=== PATIENT | female | born 1975 | race Caucasian/White ===

== ENCOUNTER 2024-04-02 11:58 | Observation (INO) | payer BC, OTHER ==
--- OUTSIDE RECORDS SUMMARY | 2024-04-02 12:00 | XMS REPORT | Clinical Summary ---
Author Name Unknown Organization [facility] Address [address] [place] [address] Care Team Providers Care Regional Forester Name Role Phone Unavailable Primary Care Provider Unavailabl e Social History Tobacco Use Types Packs/Day Years Used Date Smoking Tobacco: Never Assessed Sex and Gender Information Value Date Recorded Sex Assigned at Not on file Gender Identity Not on file Sexual Orientation Not on file Plan of Treatment Not on file
[2024-04-02 12:31] LABS: Absolute Basophils 0.1 K/uL (0-0.5); Absolute Eosinophils 0.2 K/uL (0-0.5); Absolute Lymphocytes (CBC) 2.1 K/uL (0.7-4.9); Absolute Monocytes 0.5 K/uL (0.1-1.3); Absolute Neutrophil 5.2 K/uL (1.8-8.0); Basophils % 1.2 % (0-1.3); Eosinophils % 1.8 % (0-4.4); Hematocrit 36.4 % (36.0-45.0); Hemoglobin 12.3 g/dL (12.0-15.0); Lymphocytes % 26.3 % (15.3-44.8); MCH 27.2 pg (27.0-35.0); MCHC 33.6 g/dL (32.0-36.0); MPV 7.8 fL (7.6-11.3); Monocytes % 6.7 % (3.3-12.3); Platelets 349 thou/uL (152-406); Red Cell Distribution Width 14.2 % (12.1-15.2)
[2024-04-02 12:46] LABS: D-Dimer < 0.215 FEUug/mL (0-0.50); PT Prothrombin Time 12.2 SECONDS (9.4-12.5); Protime INR 1.09
[2024-04-02 12:52] LABS: ALT/SGPT 23 U/L (13-56); AST/SGOT 15 U/L (15-37); Albumin 3.3 g/dL (3.4-5.0); Alkaline Phosphatase 54 U/L (45-117); Anion Gap 8.6 mEq/L (5.0-15.0); BUN Blood Urea Nitrogen 11 mg/dL (7-18); Bicarbonate 25 mEq/L (21-32); Bilirubin Direct < 0.2 mg/dL (0-0.2); Bilirubin Indirect, Calculated 0.1 mg/dL (0.2-0.8); Bilirubin Total 0.3 mg/dL (0.2-1.0); Globulin 3.4 g/dL (2.3-3.5); Glomerular Filtration Rate 88 ml/min (=/>90); Glucose Level 105 mg/dL (74-106); Lipase 21 U/L (13-75); Magnesium 2.1 mg/dL (1.6-2.4); NT PRO-BNP 51 pg/mL (<125); Potassium 3.6 mEq/L (3.5-5.1); Protein, Total 6.7 g/dL (6.4-8.2); Sodium Level 138 mEq/L (136-145)
[2024-04-02 12:53] LABS: Troponin High Sensitivity < 3.0 pg/mL (<58.9)
[2024-04-02] MEDS ORDERED: NA CHLORIDE 0.9% 1,000 ML ONE (13:04)
[2024-04-02 13:21] LABS: Sqamous Epithelial <5 /HPF (None Seen); Urine Bacteria None Seen /HPF (<20); Urine Bilirubin NEGATIVE (Negative); Urine Blood Negative (Negative); Urine Clarity Turbid (Clear); Urine Color Yellow (Yellow); Urine Culture Reflex Order NOT NEEDED; Urine Glucose NEGATIVE (Negative); Urine Ketones NEGATIVE (Negative); Urine Microscopic Reflex YN ORDER UMIC; Urine Nitrite NEGATIVE (Negative); Urine Protein NEGATIVE (Negative); Urine RBC <5 /HPF (None Seen); Urine Urobilinogen Normal (Normal); Urine WBC <5 /HPF (<5); Urine pH 8.5 (5.0-7.0)
--- NOTE | 2024-04-02 14:31 | RAD REPORT ---
EXAM DESCRIPTION: RAD - Chest Single View - 04/02/2024 2:16 pm CLINICAL HISTORY: near synope COMPARISON: CHEST PA AND LAT 2 VIEW dated 01/02/2012 FINDINGS: Lines: None. Lungs: No evidence of edema or pneumonia. Pleural: No significant pleural effusions or pneumothorax. Cardiac: The heart size is within normal limits. Mediastinum: Within normal limits. Bones: No acute fractures. Other: None IMPRESSION: No acute cardiopulmonary disease.
--- NOTE | 2024-04-02 15:20 | P.HP ---
Certification for Inpatient Patient admitted to: Observation <Dominga Cruz - Last Filed: 04/02/24 17:27> Patient History Date of Service: 04/02/24 Reason for admission: Near syncope History of Present Illness: 48-year-old female with past medical history of benign brain tumor, hypertension, hyperlipidemia, presents to the emergency room with a near syncopal episode. She reports that episode occurred around 11 AM. She reports sitting. She reports chest pain. Bilateral upper extremity arm tingling that occurred during near syncopal episode. She reports chest pain is 2 out of 10, nonradiating. She reports associated diaphoresis. She reports eating breakfast, protein bar. 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 She denies history of syncopal episode. Plan to admit for chest pain rule out RI, near syncopal episode - Past Medical/Surgical History -: Essential hypertension -: Hysterectomy -: Benign brain tumor 2017, 2018 - Social History Smoking Status: Never smoker Alcohol use: No CD- Drugs: No Caffeine use: Yes Place of Residence: Home <Dominga Cruz - Last Filed: 04/02/24 17:27> Date of Service: 04/02/24 <Wild Awad - Last Filed: 04/03/24 04:08> Allergies codeine Adverse Reaction (Verified 04/02/24 13:36) Itching/Hives/Rash NSAIDS (Non-Steroidal Anti-Inflamma Adverse Reaction (Verified 04/02/24 13:36) Itching Home Medications: Alprazolam [Xanax] 0.25 mg PO BEDTIME 04/02/24 Famotidine [Pepcid] 20 mg PO BID 04/02/24 Losartan Potassium 50 mg PO BEDTIME 04/02/24 Review of Systems Per HPI <Dominga Cruz - Last Filed: 04/02/24 17:27> Physical Examination - Physical Exam General: Alert, In no apparent distress, Oriented x3 HEENT: Atraumatic, Normocephalic Neck: Supple, 2+ carotid pulse no bruit Respiratory: Clear to auscultation bilaterally, Normal air movement Cardiovascular: Normal pulses, Regular rate/rhythm Capillary refill: <2 Seconds Gastrointestinal: Normal bowel sounds, Soft and benign Musculoskeletal: No clubbing, No swelling Integumentary: No significant lesion, No tenderness/swelling Neurological: Normal speech, Normal strength at 5/5 x4 extr, Cranial nerves 3-12 intact - Studies Laboratory Data (last 24 hrs) 04/02/24 04/02/24 04/02/24 12:20 12:20 12:20 WBC 8.20 Hgb 12.3 Hct 36.4 Plt Count 349 PT 12.2 INR 1.09 Sodium 138 Potassium 3.6 BUN 11 Creatinine 0.81 Glucose 105 Magnesium 2.1 Total Bilirubin 0.3 AST 15 ALT 23 Alkaline Phosphatase 54 Lipase 21 <Dominga Cruz - Last Filed: 04/02/24 17:27> - Studies Laboratory Data (last 24 hrs) 04/02/24 04/02/24 04/02/24 12:20 12:20 12:20 WBC 8.20 Hgb 12.3 Hct 36.4 Plt Count 349 PT 12.2 INR 1.09 Sodium 138 Potassium 3.6 BUN 11 Creatinine 0.81 Glucose 105 Magnesium 2.1 Total Bilirubin 0.3 AST 15 ALT 23 Alkaline Phosphatase 54 Lipase 21 04/02/24 04/02/24 04/02/24 12:16 12:16 12:16 WBC Cancelled Hgb Cancelled Hct Cancelled Plt Count Cancelled PT Cancelled INR Cancelled Sodium Cancelled Potassium Cancelled BUN Cancelled Creatinine Cancelled Glucose Cancelled Magnesium Cancelled Total Bilirubin Cancelled AST Cancelled ALT Cancelled Alkaline Phosphatase Cancelled Lipase Cancelled <Wild Awad - Last Filed: 04/03/24 04:08> Assessment and Plan - Plan Assessment plan Chest pain rule out RI Near syncopal episode Telemetry, orthostatic vital signs, Trend troponins, lipid panel in the Echocardiogram, Nuclear med stress test in the a.m. ER EKG normal sinus rhythm [address] changes History of benign brain tumor History of benign tumor 2017, 2019 MRI of the brain Essential hypertension controlled Hyperlipidemia currently not on medication Telemetry Resume appropriate home Full code DVT Lovenox Diet cardiac Disposition Home independent prior Discharge Plan: Home - Advance Directives Does patient have a Living Will: No Does patient have a Durable POA for Healthcare: No - Code Status/Comfort Care Code Status: Full Code Critical Care: No Time Spent Managing Pts Care (In Minutes): 55 <Dominga Cruz - Last Filed: 04/02/24 17:27> Date of Service: 04/02/24 Charted and reviewed. Patient presents with chest pain which started in the morning and then when she went with her for his intraocular injections she became lightheaded. She does not remember a lot of what happened but she never really passed out according to the who was at the clinic. Patient's blood pressure and heart rate were low when EMS arrived. It appeared patient may have had a vagal reaction. However, patient with numerous risk factors and she was having some chest discomfort this morning. Plan is to do an echocardiogram with serial troponins and then possibly stress test or further cardiac intervention in the morning. At this time patient will be admitted to the hospital for observation. <Wild Awad - Last Filed: 04/03/24 04:08>
[2024-04-02] MEDS ORDERED: MORPHINE 2 MG/ML SYR IV PRN (16:24)
[2024-04-02] MEDS ORDERED: ACETAMINOPHEN 500 MG TAB PO PRN (16:24)
[2024-04-02] MEDS ORDERED: ONDANSETRON 4 MG/2 ML VIAL IV PRN (16:24)
[2024-04-02 16:43] VITALS: BMI 36.6
--- NOTE | 2024-04-02 17:05 | EKG ---
Test Date: 2024-04-02 Test Time: 12:12:55 C++ Quant Developer: ASPEN MEASUREMENT RESULTS: Intervals: Rate: 70 KS: 164 QRSD: 90 QT: 438 QTc: 473 Edison: P: 57 KS: 164 QRS: 34 T: 36 INTERPRETIVE STATEMENTS: Normal sinus rhythm Normal ECG Compared to ECG 09/09/2016 08:26:09 Sinus bradycardia no longer present Sinus arrhythmia no longer present Electronically Signed On 04-02-24 17:04:20 CDT by Cameron Howard
--- NOTE | 2024-04-02 17:12 | EDPHYS ---
Physician Documentation [facility] Name: Lisa Plaza Age: 48 yrs Sex: Female : 1975 Arrival Date: 04/02/2024 Time: 11:58 Bed 12 Private MD: ED Physician Wolfgang Lundberg HPI: 04/02 14:03 This 48 yrs old Female presents to ER via EMS with complaints of Near Syncope.julia 14:03 The patient has experienced near-syncope, almost passed out, felt dizzy, felt faint, julia felt generally weak. Onset: The symptoms/episode began/occurred just prior to arrival. Duration: This was a single episode, that lasted 45 second(s). Context: the episode(s) was witnessed, by a bystander, by a significant other. EDUCATION TRAINER: 15:35 unknown cm10 Historical: - Allergies: 12:05 Codeine; nj1 12:05 NSAIDS; nj1 - Home Meds: 12:06 losartan 50 mg oral tablet 1 tab nightly [Active]; nj1 - PMHx: 12:05 Hypertensive disorder; nj1 - Immunization history:: Client reports receiving the 2nd dose of the Covid vaccine. - Infectious Disease History:: Denies. - Social history:: Smoking status: Patient denies any tobacco usage or history of. ROS: 14:03 Constitutional: Negative for fever, chills, and weight loss, Eyes: Negative for injury, julia pain, redness, and discharge, ENT: Negative for injury, pain, and discharge, Neck: Negative for injury, pain, and swelling, Respiratory: Negative for shortness of breath, cough, wheezing, and pleuritic chest pain, Abdomen/GI: Negative for abdominal pain, nausea, vomiting, diarrhea, and constipation, Back: Negative for injury and pain, : Negative for injury, bleeding, discharge, and swelling, MS/Extremity: Negative for injury and deformity, Skin: Negative for injury, rash, and discoloration, Psych: Negative for depression, anxiety, suicide ideation, homicidal ideation, and hallucinations, Allergy/Immunology: Negative for hives, rash, and allergies, Endocrine: Negative for neck swelling, polydipsia, polyuria, polyphagia, and marked weight changes, Hematologic/Lymphatic: Negative for swollen nodes, abnormal bleeding, and unusual bruising, 14:03 Cardiovascular: Positive for chest pain, 14:03 Neuro: Positive for near syncope, weakness, Exam: 14:03 Constitutional: This is a well developed, well nourished patient who is awake, alert, julia and in no acute distress. Head/Face: Normocephalic, atraumatic. Eyes: Pupils equal round and reactive to light, extra-ocular motions intact. Lids and lashes normal. Conjunctiva and sclera are non-icteric and not injected. Cornea within normal limits. Periorbital areas with no swelling, redness, or edema. ENT: Nares patent. No nasal discharge, no septal abnormalities noted. Tympanic membranes are normal and external auditory canals are clear. Oropharynx with no redness, swelling, or masses, exudates, or evidence of obstruction, uvula midline. Mucous membranes moist. Neck: Trachea midline, no thyromegaly or masses palpated, and no cervical lymphadenopathy. Supple, full range of motion without nuchal rigidity, or vertebral point tenderness. No Meningismus. Chest/axilla: Normal chest wall appearance and motion. Nontender with no deformity. No lesions are appreciated. Cardiovascular: Regular rate and rhythm with a normal S1 and S2. No gallops, murmurs, or rubs. Normal PMI, no JVD. No pulse deficits. Respiratory: Lungs have equal breath sounds bilaterally, clear to auscultation and percussion. No rales, rhonchi or wheezes noted. No increased work of breathing, no retractions or nasal flaring. Abdomen/GI: Soft, non-tender, with normal bowel sounds. No distension or tympany. No guarding or rebound. No evidence of tenderness throughout. Back: No spinal tenderness. No costovertebral tenderness. Full range of motion. Skin: Warm, dry with normal turgor. Normal color with no rashes, no lesions, and no evidence of cellulitis. MS/ Extremity: Pulses equal, no cyanosis. Neurovascular intact. Full, normal range of motion. Neuro: Awake and alert, GCS 15, oriented to person, place, time, and situation. Cranial nerves II-XII grossly intact. Motor strength 5/5 in all extremities. Sensory grossly intact. Cerebellar exam normal. Normal gait. Psych: Awake, alert, with orientation to person, place and time. Behavior, mood, and affect are within normal limits. 14:03 ECG was reviewed by the Attending Physician. 14:03 Musculoskeletal/extremity: Extremities: all appear grossly normal, with no appreciated pain with palpation, ROM: no acute changes, Circulation is intact in all extremities. Sensation intact. Compartment Syndrome exam of affected extremity: is normal. Joints: All joints appear normal with full range of motion. Weight bearing: able to fully bear weight, 14:03 Neuro: Exam negative for acute changes, Orientation: is normal, appropriate for stated age, no acute changes, Mentation: is normal, appropriate for stated age, no acute changes, Memory: is normal, appropriate for stated age, no acute changes, Cranial nerves: is grossly normal based on the patient's age, no acute changes, Cerebellar function: is grossly normal, no acute changes, Motor: is normal, is grossly normal based on the patient's age, moves all fours, strength is 5/5 in all extremities, Sensation: is normal, no obvious gross deficits, appropriate no acute changes, Gait: not tested. Deep tendon reflexes are normal, 2+ (normal) in the bilateral brachioradialis, bicep, tricep and patellar and Achilles tendons, seizure activity, is not displayed by the patient, Vital Signs: 11:56 BP 128 / 75; Pulse 60; Resp 18; Temp 98(O); Pulse Ox 97% on R/A; Weight 120.2 kg; nj1 Height 5 ft. 11 in. ; 12:52 BP 121 / 75 Supine; Pulse 64; cm10 12:54 BP 121 / 71 Sitting; Pulse 76; cm10 12:56 BP 114 / 79; Pulse 74; cm10 14:00 BP 130 / 73; Pulse 74; Resp 16; Pulse Ox 100% ; cm10 14:30 BP 131 / 80; Pulse 74; Resp 16; Pulse Ox 99% ; cm10 15:00 BP 117 / 71; Pulse 69; Resp 16; Pulse Ox 100% ; cm10 11:56 Body Mass Index 36.96 (120.20 kg, 180.34 cm) nj NIH Stroke Scale Scores: 14:03 NIHSS Score: 0 julia MDM: 12:02 Patient medically screened. julia 14:07 Differential diagnosis: abnormal EKG, acute myocardial infarction, acute pericarditis, julia chest wall pain, congestive heart failure cholecystitis, Cholelithiasis costochondritis, esophagitis, gastritis, gastroesophageal reflux disease (GERD), herpes zoster, hiatal hernia, Maritza-Coelho syndrome, peptic ulcer disease, pericarditis, pleurisy, pneumonia, pneumothorax, pulmonary embolus, stable angina, thoracic aortic disection, unstable angina. HEART Score: History: Moderately Suspicious (1), ECG: Non specific repolarization disturbance / LBTB / PM (1), Age: > 45 and < 65 years (1), Risk Factors: > or = 3 Risk factors for atherosclerotic disease (2), [Hypertension] [+ Family HX] [Obesity] Troponin: < or = 1 x Normal Limit (0). Differential Diagnosis: aortic aneurysm, cardiac arrhythmia, cerebrovascular accident, emotional response, GI bleed, pseudo seizure, seizure, sepsis, transient ischemic attack, vasovagal episode. The patient was not given aspirin in the Emergency Department. Not indicated due to patient's past medical history. JACKLYN Risk Score: 1 - Three or more CAD risk factors, TOTAL SCORE = 1. Data reviewed: vital signs, nurses notes, lab test result(s), EKG, radiologic studies, plain films. Consideration of Admission/Observation Patient was admitted/placed on observation. Escalation of care including admission/observation considered. I considered the following discharge prescriptions or medication management in the emergency department Medications were administered in the Emergency Department. See MAR. Independent interpretation of the following test(s) in the Emergency Department EKG: See my EKG interpretation above. 04/02 12:26 Order name: Basic Metabolic Panel; Complete Time: 13:56 EDMS 04/02 12:26 Order name: Liver (Hepatic) Function; Complete Time: 13:56 EDMS 04/02 12:26 Order name: Troponin High Sensitivity; Complete Time: 13:56 EDMS 04/02 12:26 Order name: NT PRO-BNP; Complete Time: 13:56 EDMS 04/02 12:26 Order name: Magnesium; Complete Time: 13:56 EDMS 04/02 12:26 Order name: Lipase; Complete Time: 13:56 EDMS 04/02 12:26 Order name: CBC with Automated Diff; Complete Time: 13:56 EDMS 04/02 12:26 Order name: Protime (+INR); Complete Time: 13:56 EDMS 04/02 12:26 Order name: D-Dimer; Complete Time: 13:56 EDMS 04/02 13:08 Order name: Urinalysis w/ reflexes; Complete Time: 13:56 EDMS 04/02 13:39 Order name: Chest Single View [facility] 04/02 12:16 Order name: Cardiac monitoring; Complete [facility]: 12:20 [facility] 04/02 12:16 Order name: EKG - Nurse/Tech; Complete Time: 12:20 [facility] 04/02 12:16 Order name: IV Saline Lock; Complete Time: 12:20 [facility] 04/02 12:16 Order name: Labs collected and sent; Complete Time: 12:20 [facility] 04/02 12:16 Order name: O2 Per Protocol; Complete Time: 12:20 [facility] 04/02 12:16 Order name: O2 Sat Monitoring; Complete Time: 12:20 [facility] EC:03 Rate is 70 beats/min. Rhythm is regular. QRS [place] is Normal. NC interval is normal. QRS julia interval is normal. QT interval is normal. No Q waves. T waves are Normal. No ST changes noted. Clinical impression: NSR w/ Non-specific ST/T Changes and No evidence of ischemia. Interpreted by me. Administered Medications: 12:22 Not Given (Pt allergic): aspirinchewable tablet 162 mg PO once; IF PT CAN TOLERATE, cm10 CONFIRM EXACT ALLERGIES 12:30 Not Given (Pt took this morning.): [id number] mg IVP once; dilute with 10 mL 0.9% cm10 NaCl; give over 2 minutes 13:07 Drug: NS 0.9% IV 1000 ml IV at 1 bolus Per protocol; 1000 mL bolus Route: IV; Rate: 1 cm10 bolus; Site: right antecubital; 16:01 Follow up: Response: No adverse reaction; IV Status: Completed infusion; IV Intake: cm10 350ml Disposition Summary: 04/02/24 14:10 Hospitalization Ordered Notes: Hospitalization Status: Observation julia Provider: Boris Kaba cha Location: Telemetry/MedSurg (observation) julia Condition: Stable julia Problem: new julia Symptoms: have improved julia Bed/Room Type: [facility] Room Assignment: 214(04/02/24 15:25) ss Diagnosis - Chest pain, unspecified julia - Syncope Near julia Forms: - Medication Reconciliation Form julia - SBAR form julia - Leadership Thank You Letter [facility] NIH Stroke Scale - NIH Stroke Score Date: 04/02/2024 Time: 14:03 Total Score = 0 10. Dysarthria (speech clarity - read or repeat words) - 0(Normal) 11. Extinction and Inattention (visual/tactile/auditory/spatial/personal) - 0(No abnormality) 1a. Level of Consciousness (LOC) - 0(Alert) 1b. Level of Consciousness (LOC) (Month \T\ Age) - 0(Both) 1c. LOC Commands (Open \T\ Closes Eyes/Electric Meter Installer) - 0(Both) 2. Best Gaze (Lateral Gaze Paresis) - 0(Normal) 3. Visual Field Loss - 0(No visual loss) 4. Facial Palsy - 0(Normal) 5a. Left Arm: Motor (10-second hold) - 0(No drift) 5b. Right Arm: Motor (10-second hold) - 0(No drift) 6a. Left Leg: Motor (5-second hold - always test supine) - 0(No drift) 6b. Right Leg: Motor (5-second hold - always test supine) - 0(No drift) 7. Limb Ataxia (finger/nose \T\ heel/hinds - test with eyes open) - 0(Absent) 8. Sensory Loss (pinprick arms/legs/face) - 0(Normal) 9. Best Language: Aphasia (description/naming/reading) - 0(No aphasia) Initials: julia Signatures: Dispatcher [employer] EDWolfgang Amaral MD MD cha Blanchard, Shelby RN RN ss Mayelin Taylor RN RN nj1 Leona Fabian RN RN cm10 Corrections: (The following items were deleted from the chart) 15:25 14:10 julia june
--- NOTE | 2024-04-02 17:12 | ER ---
Nurse's Notes [facility] Name: Lisa Plaza Age: 48 yrs Sex: Female : 1975 Arrival Date: 04/02/2024 Time: 11:58 Bed 12 Private MD: Diagnosis: Chest pain, unspecified;Syncope Near Presentation: 04/02 11:56 Chief complaint: EMS states: Sudden dizziness while at eye center. Pale/diaphoretic nj1 upon EMS arrival, VSS. Positive orthostatics. Initiated IVF. 11:56 Coronavirus screen: Vaccine status: Patient reports receiving the 2nd dose of the covid nj1 vaccine. Ebola Screen: Patient denies travel to an Ebola-affected area in the 21 days before illness onset. Initial Sepsis Screen: Does the patient meet any 2 criteria? No. Patient's initial sepsis screen is negative. Does the patient have a suspected source of infection? No. Patient's initial sepsis screen is negative. Risk Assessment: Do you want to hurt yourself or someone else? Patient reports no desire to harm self or others. Onset of symptoms was April 02, 2024. 11:56 Method Of Arrival: EMS: [facility] nj1 11:56 Acuity: [place]AP[place] 3 nj1 12:07 Care prior to arrival: Medication(s) given: Normal saline infusion, IV initiated. 20 nj1 GA, in the right antecubital area. [employer]: 15:35 unknown cm10 Historical: - Allergies: 12:05 Codeine; nj1 12:05 NSAIDS; nj1 - Home Meds: 12:06 losartan 50 mg oral tablet 1 tab nightly [Active]; nj1 - PMHx: 12:05 Hypertensive disorder; nj1 - Immunization history:: Client reports receiving the 2nd dose of the Covid vaccine. - Infectious Disease History:: Denies. - Social history:: Smoking status: Patient denies any tobacco usage or history of. Screenin:16 [facility] ED Fall Risk Assessment (Adult) History of falling in the last 3 months, cm10 including since admission Yes- physiologic fall (2 pts) Confusion or Disorientation No (0 pts) Intoxicated or Sedated No (0 pts) Impaired Gait No (0 pts) Mobility Assist Device Used No (0 pt) Altered Elimination No (0 pt) Score/Fall Risk Level 0 - 2 = Low Risk Oriented to surroundings, Maintained a safe environment, Hourly rounding (assess needs \T\ fall precautionary measures) done. Abuse screen: Denies threats or abuse. Denies injuries from another. Nutritional screening: No deficits noted. Tuberculosis screening: No symptoms or risk factors identified. Assessment: 12:17 General: Appears in no apparent distress. comfortable, Behavior is calm, cooperative. cm10 Pain: Complains of pain in chest. Pain: Pain currently is 0 out of 10 on a pain scale. Neuro: No deficits noted. Level of Consciousness is awake, alert, obeys commands, Oriented to person, place, time, situation, Appropriate for age. Neuro: Reports a syncopal episode. Cardiovascular: No deficits noted. Patient's skin is warm and dry. Chest pain is described as Has resolved at this time. Respiratory: No deficits noted. Airway is patent Respiratory effort is even, unlabored, Respiratory pattern is regular, symmetrical. Derm: No deficits noted. Skin is intact, Skin is pink, warm \T\ dry. Musculoskeletal: No deficits noted. Range of motion: intact in all extremities. 12:45 Reassessment: Pt able to ambulate to restroom, denies dizziness. Patient states feeling cm10 better. Patient states symptoms have improved. 13:43 Reassessment: Pt ambulating to restroom, denies dizziness. cm10 15:35 Reassessment: Patient appears in no apparent distress at this time. No changes from cm10 previously documented assessment. Patient and/or family updated on plan of care and expected duration. Pain level reassessed. Patient is alert, oriented x 3, equal unlabored respirations, skin warm/dry/pink. Vital Signs: 11:56 BP 128 / 75; Pulse 60; Resp 18; Temp 98(O); Pulse Ox 97% on R/A; Weight 120.2 kg; nj1 Height 5 ft. 11 in. ; 12:52 BP 121 / 75 Supine; Pulse 64; cm10 12:54 BP 121 / 71 Sitting; Pulse 76; cm10 12:56 BP 114 / 79; Pulse 74; cm10 14:00 BP 130 / 73; Pulse 74; Resp 16; Pulse Ox 100% ; cm10 14:30 BP 131 / 80; Pulse 74; Resp 16; Pulse Ox 99% ; cm10 15:00 BP 117 / 71; Pulse 69; Resp 16; Pulse Ox 100% ; cm10 11:56 Body Mass Index 36.96 (120.20 kg, 180.34 cm) nj1 NIH Stroke Scale Scores: 14:03 NIHSS Score: 0 [facility] ED Course: 12:02 Patient arrived in ED. cm10 12:02 Wolfgang Lundberg MD is Attending Physician. julia 12:03 Leona Fabian, RN is Primary Nurse. cm10 12:05 Triage completed. nj1 12:07 Arm band placed on. nj1 12:07 Maintain EMS IV. Dressing intact. Site clean \T\ dry. Gauge \T\ site: 20 R AC. IV is nj 1 patent, with fluids infusing freely. 12:16 Patient has correct armband on for positive identification. Bed in low position. Call cm10 light in reach. Side rails up X2. Provided Education on: ER process and procedures.. Client placed on continuous cardiac and pulse oximetry monitoring. NIBP monitoring applied. quality assurance monitor chassis on. 12:16 EKG done, by ED staff, reviewed by Wolfgang Lundberg MD. cm10 12:20 Initial lab(s) drawn, by [facility], sent to lab. [facility] 14:00 Pt visited by. ane 14:10 Boris Kaba is Hospitalizing Provider. [facility] 14:18 Chest Single View In Process Unspecified. EDMS 15:32 Report faxed at [phone]. Called at 1530 X3 and no answer. cm10 16:00 No provider procedures requiring assistance completed. Patient admitted, IV remains in cm10 place. Administered Medications: 12:22 Not Given (Pt allergic): aspirinchewable tablet 162 mg PO once; IF PT CAN TOLERATE, cm10 CONFIRM EXACT ALLERGIES 12:30 Not Given (Pt took this morning.): [id number] mg IVP once; dilute with 10 mL 0.9% cm10 NaCl; give over 2 minutes 13:07 Drug: NS 0.9% IV 1000 ml IV at 1 bolus Per protocol; 1000 mL bolus Route: IV; Rate: 1 cm10 bolus; Site: right antecubital; 16:01 Follow up: Response: No adverse reaction; IV Status: Completed infusion; IV Intake: cm10 350ml Medication: 12:16 VIS not applicable for this client. cm10 Intake: 16:01 IV: 350ml; Total: 350ml. cm10 Outcome: 14:10 Decision to Hospitalize by Provider. julia 16:00 Patient left the ED. eb 16:00 Admitted to Med/surg via wheelchair, room 214, cm10 16:00 Condition: good 16:00 Instructed on the need for admit, NIH Stroke Scale - NIH Stroke Score Date: 04/02/2024 Time: 14:03 Total Score = 0 10. Dysarthria (speech clarity - read or repeat words) - 0(Normal) 11. Extinction and Inattention (visual/tactile/auditory/spatial/personal) - 0(No abnormality) 1a. Level of Consciousness (LOC) - 0(Alert) 1b. Level of Consciousness (LOC) (Month \T\ Age) - 0(Both) 1c. LOC Commands (Open \T\ Closes Eyes/Disc Sander) - 0(Both) 2. Best Gaze (Lateral Gaze Paresis) - 0(Normal) 3. Visual Field Loss - 0(No visual loss) 4. Facial Palsy - 0(Normal) 5a. Left Arm: Motor (10-second hold) - 0(No drift) 5b. Right Arm: Motor (10-second hold) - 0(No drift) 6a. Left Leg: Motor (5-second hold - always test supine) - 0(No drift) 6b. Right Leg: Motor (5-second hold - always test supine) - 0(No drift) 7. Limb Ataxia (finger/nose \T\ heel/hinds - test with eyes open) - 0(Absent) 8. Sensory Loss (pinprick arms/legs/face) - 0(Normal) 9. Best Language: Aphasia (description/naming/reading) - 0(No aphasia) Initials: [facility] Signatures: Dispatcher [employer] EDTX Wolfgang Lundberg MD MD cha Botello, Elizabeth eb Carowatson, Breana 6 Mayelin Taylor RN RN nj1 Leona Fabian RN RN cm10 Evelin Blankenship RN RN ane Corrections: (The following items were deleted from the chart) 13:43 13:03 Reassessment: Pt able to ambulate to restroom, denies dizziness. Patient cm10 states feeling better. Patient states symptoms have improved. cm10
[2024-04-02] MEDS: NA CHLORIDE 0.9% 1,000 ML IV SCH (17:31)
[2024-04-02] MEDS: ALPRAZOLAM 0.25 MG TABLET PO PRN (22:04)
[2024-04-02] MEDS: LOSARTAN POTASSIUM 50 MG TABLET PO SCH (23:03)
[2024-04-03 05:27] LABS: Absolute Basophils 0.1 K/uL (0-0.5); Absolute Eosinophils 0.2 K/uL (0-0.5); Absolute Lymphocytes (CBC) 2.3 K/uL (0.7-4.9); Absolute Monocytes 0.6 K/uL (0.1-1.3); Absolute Neutrophil 3.7 K/uL (1.8-8.0); Basophils % 0.9 % (0-1.3); Eosinophils % 2.4 % (0-4.4); Hematocrit 35.2 % (36.0-45.0); Hemoglobin 12.1 g/dL (12.0-15.0); Lymphocytes % 33.8 % (15.3-44.8); MCH 27.8 pg (27.0-35.0); MCHC 34.4 g/dL (32.0-36.0); MCV 80.7 fL (80-100); MPV 7.8 fL (7.6-11.3); Monocytes % 8.2 % (3.3-12.3); Neutrophils % 54.7 % (41.7-73.7); Platelets 319 thou/uL (152-406); RBC Red Blood Cell Count 4.36 M/uL (3.86-4.86); Red Cell Distribution Width 14.2 % (12.1-15.2)
[2024-04-03 05:50] LABS: Albumin 3.1 g/dL (3.4-5.0); Albumin/Globulin Ratio 0.9 (1.1-1.8); Anion Gap 8.7 mEq/L (5.0-15.0); Bilirubin Total 0.4 mg/dL (0.2-1.0); Globulin 3.4 g/dL (2.3-3.5); Magnesium 2.1 mg/dL (1.6-2.4); Potassium 3.7 mEq/L (3.5-5.1); Protein, Total 6.5 g/dL (6.4-8.2)
--- NOTE | 2024-04-03 06:27 | P.DS ---
Admission Date: 04/02/24 Discharge Date: 04/03/24 Disposition: ROUTINE DISCHARGE Discharge Condition: GOOD Reason for Admission: Near syncope Brief History of Present Illness: 48-year-old female with past medical history of benign brain tumor, hypertension, hyperlipidemia, presents to the emergency room with a near syncopal episode. She reports that episode occurred around 11 AM. She reports sitting. She reports chest pain. Bilateral upper extremity arm tingling that occurred during near syncopal episode. She reports chest pain is 2 out of 10, nonradiating. She reports associated diaphoresis. She reports eating breakfast , protein bar. 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 She denies history of syncopal episode. Plan to admit for chest pain rule out AL, near syncopal episode Physical Examination - Physical Exam General: Alert, In no apparent distress, Oriented x3 HEENT: Atraumatic, Normocephalic Neck: Supple, 2+ carotid pulse no bruit Respiratory: Clear to auscultation bilaterally, Normal air movement Cardiovascular: Normal pulses, Regular rate/rhythm Capillary refill: <2 Seconds Gastrointestinal: Normal bowel sounds, Soft and benign Musculoskeletal: No clubbing, No swelling Integumentary: No significant lesion, No tenderness/swelling Neurological: Normal speech, Normal strength at 5/5 x4 extr, Cranial nerves 3-12 intact Hospital Course: 48 year old famale with past medical history of benigh brain tumor, hypertension presented with near syncopal episode. Serial troponin...cardiac stress test... MRI brain... Continue home medicines as previously prescribed GOAL: Clear understanding of disease process INSTRUCTIONS: Physician Discharge Instructions: -Follow-up with PCP in 1 to 2 weeks -Please call Dr. Awad at [phone] if any questions regarding hospital stay -Please call nursing station at [phone] if any nursing or medication questions -Return to the emergency room if symptoms worsen Diet: ADA, low sodium Activity: Fall precautions Vital Signs/Physical Exam: Temp Pulse Resp BP Pulse Ox 98.3 F 68 16 129/80 99 04/03/24 04:00 04/03/24 04:00 04/03/24 04:00 04/03/24 04:00 04/03/24 04:00 Laboratory Data at Discharge: WBC 6.70 thou/uL (4.3-10.9) 04/03/24 04:54 Hgb 12.1 g/dL (12.0-15.0) 04/03/24 04:54 Hct 35.2 % (36.0-45.0) L 04/03/24 04:54 Plt Count 319 thou/uL (152-406) 04/03/24 04:54 PT 12.2 SECONDS (9.4-12.5) 04/02/24 12:20 INR 1.09 04/02/24 12:20 Sodium 142 mEq/L (136-145) 04/03/24 04:54 Potassium 3.7 mEq/L (3.5-5.1) 04/03/24 04:54 BUN 8 mg/dL (7-18) 04/03/24 04:54 Creatinine 0.74 mg/dL (0.55-1.02) 04/03/24 04:54 Glucose 97 mg/dL (74-106) 04/03/24 04:54 Magnesium 2.1 mg/dL (1.6-2.4) 04/03/24 04:54 Total Bilirubin 0.4 mg/dL (0.2-1.0) 04/03/24 04:54 AST 12 U/L (15-37) L 04/03/24 04:54 ALT 24 U/L (13-56) 04/03/24 04:54 Alkaline Phosphatase 55 U/L (45-117) 04/03/24 04:54 Triglycerides 288 mg/dL (<150) H 04/03/24 04:54 Cholesterol 158 mg/dL (<200) 04/03/24 04:54 HDL Cholesterol 27 mg/dL (40-60) L 04/03/24 04:54 Cholesterol/HDL Ratio 5.85 04/03/24 04:54 Lipase 21 U/L (13-75) 04/02/24 12:20 Home Medications: Famotidine [Pepcid] 20 mg PO BID 04/02/24 Losartan Potassium 50 mg PO BEDTIME 04/02/24 Alprazolam [Xanax] 0.25 mg PO BEDTIME #30 tab 04/03/24 New Medications: Alprazolam [Xanax] 0.25 mg PO BEDTIME #30 tab Physician Discharge Instructions: -DC IV and DC home -Follow-up with PCP in 1 to 2 weeks -Follow-up with Cardiology in 1 to 2 weeks -Please call Dr. Awad at [phone] if any questions regarding hospital stay -Please call nursing station at [phone] if any nursing or medication questions -Return to the emergency room if symptoms worsen Diet: AHA Activity: Fall precautions Followup: Edison Galvez MD [Primary Care Provider] - Time spent managing pt's care (in minutes): 45
[2024-04-03] MEDS ORDERED: REGADENOSON 0.4 MG/5 ML SYR IV ONE (08:02)
--- NOTE | 2024-04-03 08:43 | RAD REPORT ---
EXAM DESCRIPTION: NM - Rest Stress Cardiac Imaging - 04/03/2024 8:31 am CLINICAL HISTORY: CP Chest pain. COMPARISON: No comparisons TECHNIQUE: The patient was administered approximately 10mCi of Tc 99m Sestamibi prior to resting SPE CT imaging of the heart. The patient was then administered approximately 30 mCi of Tc 99m Sestamibi f ollowing exercise or pharmacologic stress. Multiplanar SPECT images were reviewed. FINDINGS: No stress induced ischemic defect is seen to suggest stress induced ischemia. No fixed def ect is seen to suggest hibernating myocardium or scarred myocardium. The end diastolic volume is 110 ml, the end systolic volume is 38 ml, and the ejection fraction is 65 %. IMPRESSION: No stress induced ischemia.
[2024-04-03] MEDS: ENOXAPARIN 40 MG/0.4 ML SQ SCH (10:11)
[2024-04-03] MEDS: FAMOTIDINE 20 MG TAB PO SCH (10:11)
[2024-04-03] MEDS: POTASSIUM CL SA 10 MEQ TAB PO ONE (10:11)
[2024-04-03 11:06] VITALS: O2SAT 98
[2024-04-03 12:44] VITALS: BP 128/58; TEMP 98.2
--- NOTE | 2024-04-03 15:49 | RAD REPORT ---
EXAM DESCRIPTION: - CP - 04/03/2024 1:19 pm CLINICAL HISTORY: SYNCOPE COMPARISON: No comparisons TECHNIQUE: Real-time sonographic evaluation of both carotid systems was performed. Doppler interroga tion was performed with waveform tracing bilaterally. FINDINGS: Normal high resistance waveforms are noted in both external carotid arteries. The common c arotid arteries and internal carotid arteries show normal low resistance waveforms. No significant plaque formation is seen. Peak systolic and end diastolic velocity values and the ICA/ CCA ratios are in the non-hemodynamically significant range. Antegrade flow seen in both vertebral arteries. IMPRESSION: No significant atherosclerotic changes noted. No evidence of a hemodynamically significant stenosis.
[2024-04-03] MEDS ORDERED: ALPRAZOLAM 0.25 MG TABLET PO SCH (21:00)
--- NOTE | 2024-04-04 09:02 | TREADPHA ---
DX: SYNCOPE Date of Study: 04/03/2024 Ht: 5' 11 " Wt: 263 lb 0 oz Consulting Physician: KAYLEIGH MEDICATIONS: TYLENOL, XANAX, LOVENOX, PEPCID, COZAAR, MORPHINE, ZOFRAN, KLOR-CON HISTORY: 48 YEAR OLD FEMALE WITH COMPLAINTS OF SYNCOPE, CHEST PAIN. HISTORY OF HYPERTENSION AND ASTHMA. PHYSICIAL EXAMINATION: RESTING B.P.: 132/74 RESTING H.R.: 65 RESTING EKG: SINUS RHYTHM, SINUS TACHYCARDIA PROTOCOL: PHARMACOLOGIC EXERCISE TIME: 3:30 B.P. AT PEAK STRESS: 133/79 IMPRESSION: LEXISCAN INJECTED. CARDIOLITE INJECTED - SEE NUCLEAR MEDICINE REPORT. NO CHEST PAIN. NO VENTRICULAR TACHYCARDIA, SUPRAVENTRICULAR TACHYCARDIA, NO ARRHYTHMIA.
== END 2024-04-03 14:48 | disposition home or self-care (01) ==
LOC: ER 11:58 → ERHOLD 15:16 → 2ND 15:48
PROVIDERS: ADMIT Hospitalist; ATTEND Hospitalist
DX: R55 Syncope and collapse (principal); R07.9 Chest pain, unspecified; I10 Essential (primary) hypertension; E78.5 Hyperlipidemia, unspecified; Z88.5 Allergy status to narcotic agent; Z88.6 Allergy status to analgesic agent
CPT/HCPCS: 93017; 85025 ×2; 81001; 80048; 36415; 83735 ×2; 85610; 80061; 85379; 80076; 83036; 84484 ×3; 83690; 80053; 83880; 71045; 93880; 78452; J2785; J1650; J7030 ×2; A9500; 96360; 96361; 99285; G0378